=== PATIENT | female | born 1995 | race Caucasian/White ===

== ENCOUNTER 2019-01-15 06:03 | Day surgery (SDC) | payer OTHER ==
[~2019-01-15] VITALS: Ht 157.5 cm; Wt 90.7 kg
[2019-01-15 06:19] VITALS: BP 109/63
[2019-01-15 16:38] VITALS: BP 115/76
== END 2019-01-15 16:10 | disposition home or self-care (01) ==
LOC: DS 06:03 → OR 07:30 → DS 16:10
DX: D39.11 Neoplasm of uncertain behavior of right ovary (principal); E66.3 Overweight; Z68.36 Body mass index [BMI] 36.0-36.9, adult
CPT/HCPCS: J0690; J1170; J2405; J2704; J2710; J3010; J3490; J7120